=== PATIENT | female | born 1990 | race Caucasian/White ===

== ENCOUNTER 2019-07-12 11:07 | Inpatient (IN) | payer OTHER ==
[2019-07-12 11:58] VITALS: BMI 38.4
[2019-07-12] MEDS ORDERED: hydrALAZINE 20 MG/ML VIAL SLOW IVP PRN (12:22)
[2019-07-12 12:41] LABS: Amnisure Internal Control QC ACCEPTABLE (ACCEPTABLE); Amnisure Test No Membranes Rupture (No Rupture)
--- NOTE | 2019-07-12 13:10 | PDOC.FPROB ---
FMR OB H&P: HPI - History of Present Illness Chief Complaint: leakage of fluid Indentification: 29yo @ 38.5wk by LMP c/w 10.3wk sono History of Present Illness: 29yo @ 38.5wk by LMP c/w 10.3wk sono presents for leakage of fluid and contractions. Pt states she had intercourse this morning, afterwards had a continual leakage of fluids and contractions intermittently that persisted. Presented to clinic and was found to have BP of 134/91 and repeat of 132/85. Dipstick with trace protein. Was sent to L&D for further eval and management. Endorses good movement, no vaginal bleeding, no change in vaginal discharge. No BRADY, vision changes, n/v, fever/chills, sob. She does endorse lower back pain as well. Primary Care Physician: GUILLERMO Velasquez/Khai FMR OB H&P: Current - Care : 2 Para: 1001 Gestational age: 38.5 Due date: 07/21/19 Dating Criteria: LMP c/w 10.3wk sono - OB Labs Blood type: O RH: negative Antibody Screen: negative HIV: negative RPR: negative HepBsAg: negative Rubella: immune Gonorrhea: negative Chlamydia: negative Pap Smear: NILM, HPV neg 1 hour gtt: 148 3 hour GTT: 128 -Passed GBS: negative H&H: 11.8 FMR OB H&P: History - Past Medical History PMH: ITP - OB History OB History: , previous delivery in 05/23/2009 was LTCS for failure to progress. 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 FMR OB H&P: Medications - Current Home Medications: Medication Instructions Recorded Confirmed Type Calcium Carbonate [Tums] 500 mg PO QID PRN 07/12/19 07/12/19 History Mv-Mn/Iron/FA/Herbal/Digestive 1 tablet PO DAILY 07/12/19 07/12/19 History [ One Tablet] Allergies/Adverse Reactions: Allergies Allergy/AdvReac Type Severity Reaction Status Date / Time rituximab [From Rituxan] Allergy Severe Anaphylaxis Verified 07/12/19 11:56 FMR OB H&P: ROS - Review of Systems General: denies: fever/chills, weight/appetite/sleep changes, night sweats, fatigue, recent trauma Eyes: denies: vision changes, double vision, scotomas ENT: denies: nasal congestion, rhinorrhea Cardiovascular: denies: chest pain Respiratory: denies: cough, congestion, shortness of breath Gastrointestinal: denies: abdominal pain, vomiting, diarrhea, constipation Genitourinary (Female): reports: vaginal discharge (clear leakage of fluid), contractions (intermittent). denies: dysuria, vaginal pain, vaginal bleeding, vaginal pressure Neurologic: denies: numbness, syncope, seizures Integumentary: denies: rash FMR OB H&P: Vital Signs - Maternal Vital signs: BP 127/80, repeat 140/83. Pulse 78. - Heart Tones Baseline: 140 (reactive) Variability: moderate Acceleration: present Deceleration: absent Category: category 1 [place] contractions every: Not observed on strip FMR OB H&P: Physical Exam - Physical Exam General: NAD, awake, alert and oriented (breathing through contractions) HEENT: MMM, conjunctiva clear, no scleral icterus Neck: supple, trachea midline Heart: RRR, normal S1/S2, no murmurs/rubs/gallops, pulses present, no edema General: CTAB, no respiratory distress, good air movement, no rales/rhonchi, no wheezing Abdomen: soft, gravid, non-tender, bowel sound present Neurological: no tremor, no focal deficit Skin: no rash Lymphatic: no unusual bruising or bleeding Psychiatric: intact recent and remote memory, good judgement and insight, normal mood and affect - Pelvic Exam Vulva: normal hair distribution, no discharge, no blood Cervix: no masses, no lesions, no blood SVE: 1/0/-3, firm Membranes: intact FMR OB H&P: Results - Labs Lab results: Laboratory Results - last 24 hr 07/12/19 12:23 Amnio Swab Test No Membranes Rupture FMR OB H&P: A/P - Problem List (1) Third trimester Current Visit: Yes Status: Acute Code(s): Z34.93 - ENCNTR FOR SUPRVSN OF NORMAL PREG, UNSP, THIRD TRIMESTER Disposition: 29yo @ 38.5wk by LMP c/w 10.3wk sono presents for leakage of fluid and contractions. #Concern for labor - leakage of fluid since this morning after intercourse - Contractions intermittent - Good movement, no vaginal bleeding, no change in vaginal discharge - SVE 1/0/-3 - Amnisure negative - Spec exam with no pooling of fluid - Findings support no rupture of membranes likely discharge 2/2 intercouse and possibly urinary incontinence - Reactive strip, baseline 140, accels, no deccels, no contractions on monitor #Elevated BP - Had BP 134/91 in clinic and SBP of 140 in triage - 2 elevated BP almost 4 hours apart, will order PreE workup - Cont to monitor FHT and BP #3rd Trimester - @ 38.5 wk by LMP c/w 10.3k sono - Scheduled for rLTCS on 07/19 PCP: GUILLERMO Velasquez/Khai Dispo: Not in active labor, intact. Pending PreE workup. Dispo pending clinical course and results. Discussion: Date/Time: 07/12/19 1300 This H&P was discussed with Dr. Mendenhall and Dr. Norris who agree with the above documentation and plan. Addendum - Attending - Attending Attestation Date/Time: 07/12/19 1609 I personally evaluated the patient and discussed the management with Dr. Li. I agree with the History, Examination, Assessment and Plan documented above with any addition or exceptions noted below.
[2019-07-12 15:00] LABS: #Eosinphils 0.1 thou/uL (0.0-0.7); #Lymphocytes 1.6 thou/uL (1.20-3.40); #Monocytes 0.7 thou/uL (0.11-0.59); #Neutrophils 8.3 thou/uL (1.40-6.50); %Basophils 0.5 % (0.0-1.0); %Eosinophils 0.8 % (0.0-10.0); %Lymphocytes 15.1 % (21.0-51.0); %Monocytes 6.3 % (0.0-10.0); %Neutrophils 77.5 % (42.0-75.0); Hemoglobin 13.3 g/dL (12.0-16.0); Mean Corpuscular HGB CONC 34.9 g/dL (32.0-36.0); Mean Corpuscular Hemoglobin 33.1 pg (27.0-31.0); Mean Corpuscular Volume 94.9 fL (78.0-98.0); Mean Platelet Volume 10.1 fL (7.4-10.4); Platelet Count 172 thou/uL (130-400); RBC Distribution Width 12.6 % (11.5-14.5); Red Blood Cell (RBC) Count 4.02 mill/uL (4.20-5.40); White Blood Cell (WBC) Count 10.7 thou/uL (4.8-10.8)
[2019-07-12] MEDS: Lactated Ringer's 1,000 ML IV SCH (15:19)
[2019-07-12 15:20] LABS: ALT (SGPT) 11 U/L (8-55); AST (SGOT) 20 U/L (5-34); Albumin 3.4 g/dL (3.5-5.0); Alkaline Phosphatase 176 U/L (40-110); Anion Gap 13 mmol/L (10-20); BUN (Urea Nitrogen) 9 mg/dL (7.0-18.7); Bilirubin, Total 0.4 mg/dL (0.2-1.2); Calc. Creatinine Clearance 167 mL/min (70-130); Calcium 9.9 mg/dL (7.8-10.44); Carbon Dioxide 23 mmol/L (22-29); Chloride 103 mmol/L (98-107); Estimated GFR-MDRD 89; Globulin 3.3 g/dL (2.4-3.5); Glucose 86 mg/dL (70-105); Potassium 4.3 mmol/L (3.5-5.1); Protein, Total 6.7 g/dL (6.0-8.3); Sodium 135 mmol/L (136-145)
[2019-07-12 15:49] LABS: Creatinine, Urine 150.87 mg/dL (47-110)
[2019-07-12] MEDS ORDERED: Promethazine HCl 25 MG/ML VIAL IM PRN ×2 (17:26→22:55)
[2019-07-12] MEDS ORDERED: Ondansetron PF 4 MG/2 ML Vial IVP PRN ×2 (17:26→22:55)
[2019-07-12] MEDS ORDERED: CEFAZOLIN 2 GM in Premix Bag 1 BAG IVPB SCH (18:00)
[2019-07-12] MEDS ORDERED: Bicitra 30 ML UDCUP PO SCH (18:00)
[2019-07-12 18:49] LABS: Hemoglobin 13.7 g/dL (12.0-16.0); Mean Corpuscular HGB CONC 36.1 g/dL (32.0-36.0); Mean Corpuscular Hemoglobin 33.8 pg (27.0-31.0); Mean Corpuscular Volume 93.7 fL (78.0-98.0); Mean Platelet Volume 10.4 fL (7.4-10.4); Platelet Count 170 thou/uL (130-400); RBC Distribution Width 12.7 % (11.5-14.5); Red Blood Cell (RBC) Count 4.05 mill/uL (4.20-5.40); White Blood Cell (WBC) Count 11.1 thou/uL (4.8-10.8)
[2019-07-12 19:24] LABS: Syphilis Antibody Nonreactive (Nonreactive); Syphilis Antibody Index 0.05 S/CO (<1.00 Non-Reactive)
[2019-07-12 19:25] LABS: HBSAg Index 0.25 S/CO (0-0.99); Hep B Surf Ag Non-Reactive S/CO (NonReactive)
--- NOTE | 2019-07-12 20:45 | PDOC.LDPN ---
Labor & Delivery Progress Note - Subjective Subjective: painful contractions - Objective Vital signs reviewed and normal: yes General: NAD, resting, breathing through contractions Uterine fundus: non tender Dilation: 3 cm Effacement: 75% Station: -3 FHT: category 1 [place] contractions every: Q4-5M Plan: continue plan of care -: Patient is a 29 y/o @ 38.5W by LMP c/w 10.3W US currently on L&D for evaluation following multiple elevated BP readings. 1. Term IUP -Patient was resting with her at bedside -Unremarkable physical exam -Maternal VSS w/o severe-range pressures -Cat 1 strip w/o deccels -SVE: /-3 @ 2029 Dispo: Will evaluate for TOLAC vs. rCSx. Addendum - Attending - Attending Attestation Date/Time: 07/12/192125 I personally evaluated the patient and discussed the management with Dr. Lee I agree with the History, Examination, Assessment and Plan documented above with any addition or exceptions noted below. 29 yo female at 38.5 wks admitted for gHTN with hx of LTCS x 1. 375/-3 with regular painful contractions. Would like to proceed with TOLAC. Repeat exam in 2 to 4 hours or prn. Cat 1 tracing. Cephalic. GBS negative. Rh negative s/p Rhogam. ABrayMD
[2019-07-12] MEDS ORDERED: Fentanyl 4 mcg/Bup 0.1% Cadd 100 ML ONE (21:57)
[2019-07-12] MEDS ORDERED: NS / Oxytocin 40 units/1000ml 1,000 ML IV PRN (22:21)
[2019-07-12] MEDS ORDERED: Lidocaine 1% (PF) 30 ML VIAL SC PRN (22:21)
[2019-07-12] MEDS ORDERED: Ibuprofen 800 MG TAB PO PRN (22:21)
--- NOTE | 2019-07-12 22:24 | PDOC.BPN ---
<JcEsha - Last Filed: 07/12/19 22:24> - Brief Progress Note Discussed risks and benefits of TOLAC vs rLTCS with patient and she discussed with her and they decided to proceed with a TOLAC. She was consented on the risks of this. -Continuous monitoring -Cervical checks q4h while in latent labor and q2h while in active labor -Will start pitocin if no cervical change at next check -Anesthesia has been consulted for epidural <Edyta Shea - Last Filed: 07/13/19 01:25> - Brief Progress Note Attending note: R/B/A discussed in regards to TOLAC. Patient with hx of LTCS 10 years ago. Presented earlier today and diagnosis with gHTN. Remains asymptomatic. Labs WNL. BP normotensive with occasional mild range. Initially decided to have repeat delivery. Is actually scheduled for next week. However, due to delayed scheduled section patient continues to be pushed back. Continued to have contractions that increased in frequency and quality. Initially was 1 cm now progressed to 3 cm. After questions answered and time to discuss options with , they have decided to proceed with TOLAC at this time. Reassurance provided for pain controlled. Advised patient that we will continue conservatively and let her progress on her own. She would like epidural for pain control. Discussed reasons for proceeding with section. Monitor closely. Consents signed. Repeat exam in 2 to 4 hours or prn. Rose
[2019-07-12] MEDS ORDERED: Naloxone HCl 0.4 mg/ml Vial IVP PRN ×2 (22:55)
[2019-07-12] MEDS ORDERED: Acetaminophen 325 MG TAB PO PRN (22:55)
[2019-07-12] MEDS ORDERED: ePHEDrine/0.9% NaCl/PF SYRINGE 50 mg/10 ml SLOW IVP PRN (22:55)
[2019-07-12] MEDS ORDERED: Lactated Ringer's 500 ML IV PRN (22:55)
[2019-07-12] MEDS ORDERED: diphenhydrAMINE 50 MG/ML VIAL IVP PRN (22:55)
[2019-07-12] MEDS ORDERED: Fentanyl 4 mcg/Bupivacaine 0.1% Cassette 100 ML EPIDURAL SCH (23:00)
[2019-07-12] MEDS ORDERED: Communication Order-Pharmacy FS SCH (23:00)
--- NOTE | 2019-07-12 23:49 | PDOC.LDPN ---
Labor & Delivery Progress Note - Subjective Subjective: comfortable - Objective Vital signs reviewed and normal: yes General: NAD SVE: /-2 @ 2330 FHT: category 2 (late decelerations after BP dropped from epidural, currently 160/mod azael/no accels) [place] contractions every: 5 min Resuscitative measures: maternal IV fluids, maternal position change - Assessment (1) Term Code(s): Z34.90 - ENCNTR FOR SUPRVSN OF NORMAL , UNSP, UNSP TRIMESTER Current Visit: Yes Status: Acute Comment: TOLAC in active labor with dx today of gHTN -SVE -2, pt making cervical change on her own, will expectantly manage -Epidural in place -Position changes and IVF bolus for cat 2 FHT after epidural, monitor closely (2) Gestational HTN Code(s): O13.9 - GESTATIONAL HTN W/O SIGNIFICANT PROTEINURIA, UNSP TRIMESTER Current Visit: Yes Status: Acute Comment: Pt in active labor, will monitor BP's and if severe then will start magnesium (3) H/O section Code(s): Z98.891 - HISTORY OF UTERINE SCAR FROM PREVIOUS SURGERY Current Visit : Yes Status: Acute Comment: Pt attempting TOLAC Plan: continue plan of care Addendum - Attending - Attending Attestation Date/Time: 07/13/19 3178 I personally evaluated the patient and discussed the management with Dr. Greene I agree with the History, Examination, Assessment and Plan documented above with any addition or exceptions noted below. Continues to show progress. Now /-3. Intact. Cephalic. GBS negative. Continue to monitor BP. Remains asymptomatic. Would like to proceed with TOLAC. Rose
[2019-07-13] MEDS: Lactated Ringer's 1,000 ML IV SCH ×3 (02:30→14:19)
[2019-07-13] MEDS ORDERED: NS w/ Oxytocin 10 units 500 ML IV SCH (03:45)
[2019-07-13] MEDS ORDERED: NS w/ Oxytocin 10 units 500 ML ONE (03:48)
--- NOTE | 2019-07-13 03:48 | PDOC.LDPN ---
Labor & Delivery Progress Note - Subjective Subjective: comfortable - Objective Vital signs reviewed and normal: yes General: NAD Uterine fundus: palpable contractions SVE: 80/-2 @ 0340, unchanged from prior FHT: category 1, variability present [place] contractions every: 5 min - Assessment (1) Term Code(s): Z34.90 - ENCNTR FOR SUPRVSN OF NORMAL , UNSP, UNSP TRIMESTER Current Visit: Yes Status: Acute Comment: TOLAC in labor with dx today of gHTN -SVE /-2, unchanged from prior, will start pitocin -Epidural in place (2) Gestational HTN Code(s): O13.9 - GESTATIONAL HTN W/O SIGNIFICANT PROTEINURIA, UNSP TRIMESTER Current Visit: Yes Status: Acute Comment: Pt in labor, will monitor BP's and if severe then will start magnesium (3) H/O section Code(s): Z98.891 - HISTORY OF UTERINE SCAR FROM PREVIOUS SURGERY Current Visit : Yes Status: Acute Comment: Pt attempting TOLAC Plan: continue plan of care, pitocin for augmentation Addendum - Attending - Attending Attestation Date/Time: 07/13/19628 I personally evaluated the patient and discussed the management with Dr. Greene I agree with the History, Examination, Assessment and Plan documented above with any addition or exceptions noted below. 29 yo female at 38.6 by LMP/10.3 wk sono admitted for gHTN decided to proceed with TOLAC Patient doing well. Pain now controlled with epidural. Remains unchanged from last exam. Discussed options, risk, benefits, and alternatives related to pitocin for augmentation. Agrees. Will start pit per protocol. Once fetus well engaged will discuss AROM if not already SROM for IUPC placement to help with pitocin titration. Cat 1 tracing. Patient with hx of ITP. Would continue to trend platelets. Risk for thrombocytopenia. Repeat exam in 2 to 4 hours or prn. Rose
[2019-07-13] MEDS ORDERED: Fentanyl 4 mcg/Bup 0.1% Cadd 100 ML ONE ×2 (06:07→12:29)
--- NOTE | 2019-07-13 07:31 | PDOC.LDPN ---
Labor & Delivery Progress Note - Subjective Subjective: comfortable - Objective Vital signs reviewed and normal: yes General: NAD, resting Uterine fundus: non tender -: 29yo @ 38.6wk by LMP c/w 10.3wk, # Tolac, Expectant management - pit started at 0345 - SVE 10/-3 @ 0100 /-3 @2032 /-2 @ 2330 /2 @ 0345 - pit started 2 @ 0730 - regular contraction pattern started ~0530 - Reactive strip, baseline 140, accels, no deccels, no contractions on monitor #gestational HTN -pr/cr ratio 0.13 - multiple mild range pressures - monitor # Hx of ITP - plts 170, monitor PCP: GUILLERMO Navarro Addendum - Attending - Attending Attestation Date/Time: 07/13/19 6777 I personally evaluated the patient and discussed the management with Dr. Winters. I agree with the History, Examination, Assessment and Plan documented above with any addition or exceptions noted below.
--- NOTE | 2019-07-13 11:06 | PDOC.LDPN ---
Labor & Delivery Progress Note - Subjective Subjective: comfortable - Objective Vital signs reviewed and normal: yes General: NAD AROM: clear fluid - Assessment (1) Gestational HTN Code(s): O13.9 - GESTATIONAL HTN W/O SIGNIFICANT PROTEINURIA, UNSP TRIMESTER Current Visit: Yes Status: Acute (2) H/O section Code(s): Z98.891 - HISTORY OF UTERINE SCAR FROM PREVIOUS SURGERY Current Visit : Yes Status: Acute (3) Term Code(s): Z34.90 - ENCNTR FOR SUPRVSN OF NORMAL , UNSP, UNSP TRIMESTER Current Visit: Yes Status: Acute -: 29yo @ 38.6wk by LMP c/w 10.3wk, # Tolac, Expectant management - pit started at 0345 - SVE 1/0/-3 @ 0100 380/-3 @2032 480/-2 @ 2330 480/-2 @ 0345 - pit started /-2 @ 0730 6/-1 @ 1030, AROM - Reactive strip, baseline 140, accels, no deccels, no contractions on monitor #gestational HTN -pr/cr ratio 0.13 - multiple mild range pressures - had one severe range pressure overnight when she was adjusting for placement of epidural, will discard as invalid finding - magnesium was discussed and considered, patient does not have mult severe range pressures nor lab changes so will hold off for now # Hx of ITP - plts 170, monitor PCP: GUILLERMO Velasquez/Khai
--- NOTE | 2019-07-13 13:27 | PDOC.LDPN ---
Labor & Delivery Progress Note - Subjective Subjective: comfortable - Objective Vital signs reviewed and normal: yes General: NAD, resting - Assessment (1) Gestational HTN Code(s): O13.9 - GESTATIONAL HTN W/O SIGNIFICANT PROTEINURIA, UNSP TRIMESTER Current Visit: Yes Status: Acute (2) H/O section Code(s): Z98.891 - HISTORY OF UTERINE SCAR FROM PREVIOUS SURGERY Current Visit : Yes Status: Acute (3) Term Code(s): Z34.90 - ENCNTR FOR SUPRVSN OF NORMAL , UNSP, UNSP TRIMESTER Current Visit: Yes Status: Acute -: 29yo @ 38.6wk by LMP c/w 10.3wk, # Tolac, Expectant management - pit started at 0345 - SVE 1/0/-3 @ 0100 80/-3 @2032 480/-2 @ 2330 4/-2 @ 0345 - pit started /-2 @ 0730 /-1 @ 1030, AROM, IUPC @11 6/-1 @ 1300 - Reactive strip, baseline 140, accels, no deccels, no contractions on monitor #gestational HTN -pr/cr ratio 0.13 - few mild range pressures - had one severe range pressure overnight when she was adjusting for placement of epidural, will discard as invalid finding - magnesium was discussed and considered, patient does not have mult severe range pressures nor lab changes so will hold off for now # Hx of ITP - plts 170, monitor PCP: GUILLERMO Velasquez/Khai Addendum - Attending - Attending Attestation Date/Time: 07/13/19 2340 I personally evaluated the patient and discussed the management with Dr. Winters I agree with the History, Examination, Assessment and Plan documented above with any addition or exceptions noted below. Dr. Norris present as ruth.
--- NOTE | 2019-07-13 15:13 | PDOC.LDPN ---
Labor & Delivery Progress Note - Subjective Subjective: comfortable - Objective Vital signs reviewed and normal: yes General: NAD - Assessment (1) Gestational HTN Code(s): O13.9 - GESTATIONAL HTN W/O SIGNIFICANT PROTEINURIA, UNSP TRIMESTER Current Visit: Yes Status: Acute (2) H/O section Code(s): Z98.891 - HISTORY OF UTERINE SCAR FROM PREVIOUS SURGERY Current Visit : Yes Status: Acute (3) Term Code(s): Z34.90 - ENCNTR FOR SUPRVSN OF NORMAL , UNSP, UNSP TRIMESTER Current Visit: Yes Status: Acute -: 29yo @ 38.6wk by LMP c/w 10.3wk, # Tolac, Expectant management - pit started at 0345 - SVE /-3 @ 0100 /-3 @2032 /-2 @ 2330 /-2 @ 0345 - pit started /2 @ 0730 /-1 @ 1030, AROM, IUPC @11 -1 @ 1300 /-1 @ 1500 Discussed R/B/A to c/s with patient and she is in agreement to proceed with c/s 2/2 arrest of dilation. She has had adequate contractions over the last four hours and has not been making change. - Reactive strip, baseline 140, accels, no deccels, no contractions on monitor #gestational HTN -pr/cr ratio 0.13 - few mild range pressures - had one severe range pressure overnight when she was adjusting for placement of epidural, will discard as invalid finding - magnesium was discussed and considered, patient does not have mult severe range pressures nor lab changes so will hold off for now # Hx of ITP - plts 170, monitor PCP: GUILLERMO Velasquez/Khai
[2019-07-13] MEDS ORDERED: Azithromycin 500 MG VIAL ONE (15:29)
[2019-07-13] MEDS ORDERED: CEFAZOLIN 2 GM in Premix Bag 1 BAG IVPB SCH (15:30)
[2019-07-13] MEDS ORDERED: Bicitra 30 ML UDCUP PO SCH (15:30)
[2019-07-13] MEDS ORDERED: Azithromycin 500 MG in Syringe 0 ML IVPB SCH (15:30)
[2019-07-13] MEDS ORDERED: metroNIDAZOLE 500 MG in Premix Bag 1 BAG IVPB SCH (16:32)
[2019-07-13] MEDS: Bicitra 30 ML UDCUP ONE ×2 (16:51→19:22)
--- NOTE | 2019-07-13 16:51 | PDOC.BPN ---
- Brief Progress Note Fever to 100.7 No purulent discharge has been noted on checks Will start Ancef, Azithro, Flaggyl for surgical PPX Plan for Unasyn and Flaggyl for 48 hours PP
[2019-07-13] MEDS ORDERED: ePHEDrine/0.9% NaCl/PF SYRINGE 50 mg/10 ml ONE (17:27)
[2019-07-13] MEDS ORDERED: Ketorolac Tromethamine 30 MG/ML VIAL ONE (17:27)
[2019-07-13] MEDS ORDERED: Dexamethasone 4 mg/ml Vial ONE (17:27)
[2019-07-13] MEDS ORDERED: PHENYLEPHRINE-NS 100 MCG/ML 10 ML SYRINGE ONE (17:27)
[2019-07-13] MEDS ORDERED: Oxytocin 10 UNITS/ML VIAL ONE (17:27)
[2019-07-13] MEDS ORDERED: MORPHINE 5 MG/10 ML PF VIAL ONE (17:27)
[2019-07-13] MEDS ORDERED: Ondansetron PF 4 MG/2 ML Vial ONE (17:41)
[2019-07-13] MEDS ORDERED: Carboprost 250 MCG/ML AMP ONE (17:59)
[2019-07-13] MEDS ORDERED: Promethazine HCl 25 MG/ML VIAL ONE (18:10)
[2019-07-13] MEDS ORDERED: Midazolam HCl 2 mg/2 ml Vial ONE (18:23)
[2019-07-13] MEDS ORDERED: Ketamine 50 MG/ML (10ML VIAL) ONE (18:27)
[2019-07-13] MEDS ORDERED: Furosemide 100 MG/10 ML VIAL ONE (19:00)
[2019-07-13] MEDS ORDERED: L&D-Morphine 4 MG/ML VIAL SLOW IVP PRN (19:18)
[2019-07-13] MEDS ORDERED: Ondansetron PF 4 MG/2 ML Vial IVP PRN ×2 (19:18→21:08)
[2019-07-13] MEDS ORDERED: Naloxone HCl 0.4 mg/ml Vial IVP PRN ×2 (19:18)
[2019-07-13] MEDS ORDERED: HYDROmorphone 2 MG/ML VIAL SLOW IVP PRN (19:18)
[2019-07-13] MEDS ORDERED: Promethazine HCl 25 MG SUPP PR PRN (19:18)
[2019-07-13] MEDS ORDERED: Promethazine HCl 25 MG/ML VIAL IM PRN (19:18)
[2019-07-13] MEDS ORDERED: Ketorolac Tromethamine 30 MG/ML VIAL IVP PRN (19:18)
[2019-07-13] MEDS ORDERED: Meperidine HCl/PF 25 MG/ML VIAL SLOW IVP PRN (19:18)
[2019-07-13] MEDS ORDERED: Ondansetron HCl/PF 4 MG/2 ML Vial IVP PRN (19:18)
[2019-07-13] MEDS ORDERED: diphenhydrAMINE 50 MG/ML VIAL IVP PRN (19:18)
[2019-07-13] MEDS ORDERED: Naloxone HCl 0.4 mg/ml Vial IV PRN (19:18)
[2019-07-13] MEDS ORDERED: Furosemide 20 MG/2 ML VIAL SLOW IVP SCH (19:30)
[2019-07-13] MEDS ORDERED: Lactated Ringer's 1,000 ML IV SCH (19:30)
[2019-07-13] MEDS ORDERED: Diphenoxylate HCl/Atropine Tablet PO SCH (19:30)
[2019-07-13] MEDS ORDERED: Ketorolac Tromethamine 30 MG/ML VIAL IVP SCH (19:30)
[2019-07-13] MEDS ORDERED: Communication Order-Pharmacy FS SCH (19:30)
--- NOTE | 2019-07-13 19:32 | PDOC.EVN ---
Event Note - Event Note Event Note: I was present and proctored Dr. Hess for this patient who was attempted a TOLAC and subsequently needed a repeat LCT C/S for arrest of dilatation. Agree with management and decision to perform . Viable female delivered LOP position Apgars 8/9. QBL 1355 mL
--- NOTE | 2019-07-13 19:35 | PDOC.EVN ---
Event Note - Event Note Event Note: operative note dictated. # [id number]
[2019-07-13] MEDS ORDERED: hydrALAZINE 20 MG/ML VIAL SLOW IVP PRN (21:08)
[2019-07-13] MEDS ORDERED: Adacel (T-DAP) 0.5 ML SYRINGE IM ONE (21:08)
[2019-07-13] MEDS ORDERED: Lanolin Ointment 7 GM TUBE TOP PRN (21:08)
[2019-07-14] MEDS: Docusate Calcium (SURFAK) 240 MG CAP PO SCH ×3 (00:16→21:23)
[2019-07-14] MEDS: Ferrous Sulfate 325 MG TAB PO SCH ×3 (00:16→21:23)
[2019-07-14] MEDS: Ibuprofen 800 MG TAB PO SCH ×4 (00:17→21:23)
[2019-07-14] MEDS: Ampicillin/Sulbactam 3 GM in Sodium Chloride 0.9% 100 ML IVPB SCH ×4 (00:32→15:58)
[2019-07-14] MEDS: metroNIDAZOLE 500 MG in Premix Bag 1 BAG IVPB SCH ×3 (00:35→14:36)
[2019-07-14] MEDS: Lactated Ringer's 1,000 ML IV SCH (00:48)
--- NOTE | 2019-07-14 01:32 | OP ---
DATE OF PROCEDURE: 07/13/2019 SURGEON: Esa Hess MD RESIDENT SURGEONS: 1. Michoacano Winters MD. 2. Boom Velasquez DO. PROCTORING SURGEON: Annemarie Copeland MD PROCEDURE PERFORMED: Repeat low-transverse . PREOPERATIVE DIAGNOSES: 1. Term intrauterine at 38.6 weeks. 2. Prior section x1. 3. Desire for trial of labor after . 4. Spontaneous onset of labor. 5. Gestational hypertension without severe features. 6. Obesity. 7. Suspected intraamniotic infection. 8. Arrest of dilation. POSTOPERATIVE DIAGNOSES: 1. Term intrauterine , delivered. 2. Failed trial of labor after section. 3. Intraamniotic infection. 4. Prior section x1. 5. Desire for trial of labor after . 6. Spontaneous onset of labor. 7. Gestational hypertension without severe features. 8. Obesity. 9. hemorrhage. 10. Arrest of dilation. ANESTHESIA: Epidural with bolus, ketamine, Versed. QUANTITATIVE BLOOD LOSS: 1355 mL. INDICATIONS: Ms. Porras is a 29-year-old, 2, para 1-0-0-1 at 38.6 weeks, who presented at 38.5 weeks for concern for labor and was found to have two elevated blood pressures outside the severe range. While awaiting repeat , she was found to have made spontaneous cervical change from 1 to 3 cm. She elected to proceed with a trial of labor after at that time. She was counseled on the risks and benefits, and elected to proceed. She failed to make cervical change after 6 hours on Pitocin. Also during the intrapartum course, she developed a fever and was started on IV cefazolin and azithromycin. Given that she had multiple complications and was remote from delivery, the patient was counseled on risks and benefits of continuing with trial of labor. At this time, she elected to proceed with repeat section. PROCEDURE IN DETAIL: After risks, benefits, and alternatives were discussed with the patient, she provided informed consent. She was taken to the operating room and her epidural was bolused. She was given preoperative antibiotics of cefazolin 2 g IV and azithromycin 500 mg. She was prepped and draped in usual sterile fashion. A Pfannenstiel incision was made along her previous skin incision, which was carried down sharply to the level of fascia, which was then nicked. The subcutaneous fat was cleared away from the overlying fascia and the fascia was extended in a curvilinear fashion using curved Serrano scissors. The superior and inferior edges of the fascia were elevated and bluntly dissected away from the underlying rectus muscles. Rectus muscles were divided digitally and retracted manually. Peritoneum was entered digitally and retracted manually. Justin O retractor was initially placed, providing visualization of lower uterine segment. No bladder flap was made at this time. A clean scalpel was used to make hysterotomy, which was then carried down sharply in the midline. The uterine cavity was entered bluntly and retracted in the caudocranial fashion. It was noted to be in the occiput posterior position and was elevated from the pelvis manually and delivered through the hysterotomy with fundal pressure. Anterior shoulder and remainder of the body were then delivered without difficulty. The cord was immediately cut and clamped and the infant was taken to the waiting resuscitative team. During the delivery, the Justin O retractor came out of the abdomen, so a bladder blade was placed to visualize the hysterotomy. The placenta was manually extracted and sent to Pathology after cord blood was collected. The uterus was exteriorized and the apices and lower uterine segment were identified. The lower portion of the hysterotomy had retracted close to the bladder than it had been on initial examination. The lower edge was clearly identified and clamped with ring forceps. A briskly bleeding arterial vessel was noted along the left edge of the hysterotomy and was controlled with a ring forceps. The hysterotomy was closed using #1 Monocryl in a running locking fashion. Additional [id number] and locking stitches were placed along the left apex to control the previously mentioned arterial vessel with good result. There were still several oozing spots along the hysterotomy, so a second imbricating layer was made using a #1 Monocryl. At this time, there was a small bleeding spot noted on the right apex, which was controlled with a single [id number] stitch using #1 Monocryl. The posterior gutter was visualized and suctioned free of clots. Uterus was placed back in the abdomen and the hysterotomy was inspected one final time. Given the close proximity of the lower edge of the hysterotomy to the bladder, the bladder was backfilled with 120 mL of sterile milk and no extravasation or incorporation of the bladder was noted in the hysterotomy repair. The rectus muscles were visualized and all bleeding was addressed with Bovie cautery. The fascia was reapproximated with a running nonlocking 0 PDS. Subcutaneous tissues were irrigated and reapproximated using #2 plain gut after bleeding vessels were addressed with the Bovie. The skin was reapproximated with 4-0 Monocryl and Dermabond was placed over the incision. Counts were correct x3. The patient tolerated the procedure well and will go to the unit after routine care and recovery. The patient will be kept on IV antibiotics of Unasyn and Flagyl for the next 24 hours due to intraamniotic infection and failed trial of labor. FINDINGS: 1. Grossly normal viable female infant, born at 1754 hours with Apgars of 8 and 9 at 1 and 5 minutes respectively. 2. Intact placenta with 3-vessel cord sent to Pathology. 3. Minimal abdominal adhesions and uterine adhesions. 4. Santoro catheter draining clear urine preoperatively and milk tinged urine postoperatively. Dr. Copeland was present for the entire case proctoring the procedure. Job ID: [id number] [facility]
--- NOTE | 2019-07-14 02:57 | PDOC.BPN ---
- Brief Progress Note Evaluated patient post-op. She is sleeping in bed. Reports feeling hot. Pain is still well controlled. Vital signs stable Fundus firm, pt well appearing Incisional dressing still in place with no drainage -Continue current plan of care -on abx 2/2 IAI
[2019-07-14 06:11] LABS: #Lymphocytes 1.5 thou/uL (1.20-3.40); #Neutrophils 16.3 thou/uL (1.40-6.50); %Basophils 0.1 % (0.0-1.0); %Eosinophils 0.2 % (0.0-10.0); %Lymphocytes 7.7 % (21.0-51.0); %Monocytes 5.1 % (0.0-10.0); %Neutrophils 86.9 % (42.0-75.0); Hemoglobin 9.1 g/dL (12.0-16.0); Mean Corpuscular HGB CONC 35.7 g/dL (32.0-36.0); Mean Corpuscular Hemoglobin 34.2 pg (27.0-31.0); Mean Corpuscular Volume 95.8 fL (78.0-98.0); Mean Platelet Volume 10.1 fL (7.4-10.4); Platelet Count 154 thou/uL (130-400); RBC Distribution Width 12.7 % (11.5-14.5); Red Blood Cell (RBC) Count 2.65 mill/uL (4.20-5.40); White Blood Cell (WBC) Count 18.8 thou/uL (4.8-10.8)
[2019-07-14] MEDS: HYDROcodone/Acetaminophen 5/325 mg Tablet PO PRN ×3 (07:24→20:23)
[2019-07-14] MEDS: Simethicone Chewable 80 MG TAB PO PRN ×2 (07:25→20:23)
--- NOTE | 2019-07-14 08:23 | PDOC.PP ---
Post Progress Note Post Day #: 1 Subjective: 29yo ->2 @ 38.6wk by LMP c/w 10.3wk delivered KEAGANA female at 17:54 on via repeat LTCS due to arrest of dilation is seen at bedside this AM. Patient reports she slept very well overnight. She reports her pain is well controlled with Hydrocodone. She notes that she has tolerated PO well and nurses are progressing her diet this AM. She notes she has had plenty of flatus , but has not been up to ambulate yet. She still has her swan in place at this time as well. She notes that she has had no headache, vision changes, fevers, chills, or lower extremity swelling. She does report minimal lochia. No other complaints this AM. PO intake tolerated: yes Flatus: yes Ambulation: no Vital Signs (12 hours) Temp Pulse Resp BP Pulse Ox 07/14/19 05:47 98.8 F 78 103/55 L 07/13/19 23:00 99.4 F 87 16 115/55 L 93 L 07/13/19 21:50 99.0 F 86 14 120/58 L 96 Weight Weight 98.43 kg - Physical Examination General: NAD Cardiovascular: no m/r/g, RRR Respiratory: clear to auscultation bilaterally, non-labored breathing Abdominal: + bowel sounds, lochia, no distention, appropriately TTP Extremities: negative homans (B) Skin: CS incision dry & intact, no rash Neurological: no gross focal deficits Psychiatric: A&Ox3, normal affect Result Diagrams: 07/14/19 05:51 07/12/19 14:33 Additional Labs: Post Labs Blood Type O NEGATIVE 07/12/19 18:40 Hep Bs Antigen Non-Reactive S/CO (NonReactive) 07/12/19 18:34 (1) Term delivered Code(s): O80 - ENCOUNTER FOR FULL-TERM UNCOMPLICATED DELIVERY Status: Acute (2) S/P Code(s): Z98.891 - HISTORY OF UTERINE SCAR FROM PREVIOUS SURGERY Status: Acute (3) Chorioamnionitis Code(s): O41.1290 - CHORIOAMNIONITIS, UNSP TRIMESTER, NOT APPLICABLE OR UNSP Status: Acute (4) Gestational HTN Code(s): O13.9 - GESTATIONAL HTN W/O SIGNIFICANT PROTEINURIA, UNSP TRIMESTER Status: Acute - Assessment/Plan 1. TIUP, delivered via repeat LTCS - 24 hour QBL 1516 - H&H this AM 9.1 - Continue routine post-op care 2. Gestational HTN - BP well controlled without medications - Continue routine monitoring 3. IAI - Afebrile overnight - Continue antibiotics for 24 hours if no complications arise Disposition: Stable, will continue current plan of care. Plan for discharge in afternoon. Addendum - Attending - Attending Attestation Date/Time: 07/14/19 4800 I personally evaluated the patient and discussed the management with Dr. Winters I agree with the History, Examination, Assessment and Plan documented above with any addition or exceptions noted below.
[2019-07-14] MEDS: Prenatal Vitamin 1 TAB PO SCH (10:09)
[2019-07-14] MEDS ORDERED: Azithromycin 500 MG in Sodium Chloride 0.9% 250 ML 250 ML IVPB SCH ×2 (15:30)
[2019-07-15 05:38] LABS: #Eosinphils 0.2 thou/uL (0.0-0.7); #Lymphocytes 1.7 thou/uL (1.20-3.40); #Monocytes 0.7 thou/uL (0.11-0.59); %Basophils 0.3 % (0.0-1.0); %Eosinophils 1.8 % (0.0-10.0); %Lymphocytes 14.8 % (21.0-51.0); %Monocytes 5.9 % (0.0-10.0); %Neutrophils 77.2 % (42.0-75.0); Hemoglobin 7.9 g/dL (12.0-16.0); Mean Corpuscular HGB CONC 34.5 g/dL (32.0-36.0); Mean Corpuscular Hemoglobin 33.4 pg (27.0-31.0); Mean Corpuscular Volume 96.8 fL (78.0-98.0); Mean Platelet Volume 8.9 fL (7.4-10.4); Platelet Count 142 thou/uL (130-400); RBC Distribution Width 12.8 % (11.5-14.5); Red Blood Cell (RBC) Count 2.37 mill/uL (4.20-5.40); White Blood Cell (WBC) Count 11.6 thou/uL (4.8-10.8)
[2019-07-15 05:40] LABS: Hemoglobin 7.8 g/dL (12.0-16.0); Mean Corpuscular HGB CONC 34.5 g/dL (32.0-36.0); Mean Corpuscular Hemoglobin 33.4 pg (27.0-31.0); Mean Corpuscular Volume 96.9 fL (78.0-98.0); Mean Platelet Volume 9.1 fL (7.4-10.4); Platelet Count 147 thou/uL (130-400); RBC Distribution Width 12.7 % (11.5-14.5); Red Blood Cell (RBC) Count 2.33 mill/uL (4.20-5.40); White Blood Cell (WBC) Count 11.7 thou/uL (4.8-10.8)
[2019-07-15] MEDS: HYDROcodone/Acetaminophen 5/325 mg Tablet PO PRN ×4 (05:42→21:18)
[2019-07-15] MEDS: Ibuprofen 800 MG TAB PO SCH ×3 (05:42→21:17)
--- NOTE | 2019-07-15 09:29 | PDOC.PP ---
Post Progress Note Post Day #: 2 Subjective: 29 yo G2 now P2 delivered by rLTCS 2/2 failed tolac. Doing well. Ambulating, tolerating PO, passing flatus. able to void. Tolerating PO. Pain controlled with norco and ibuprofen. PO intake tolerated: yes Flatus: yes Ambulation: yes Vital Signs (12 hours) Temp Pulse Resp BP Pulse Ox 07/15/19 06:59 98 F 80 16 110/62 94 L 07/15/19 05:35 97.8 F 88 18 132/66 07/14/19 23:50 98.3 F 75 18 107/59 L Weight Weight 98.43 kg - Physical Examination General: NAD Cardiovascular: no m/r/g, RRR Respiratory: clear to auscultation bilaterally, non-labored breathing Abdominal: + bowel sounds, lochia, no distention, appropriately TTP Fundus firm & at: below umbilucus Extremities: negative homans (B) Skin: CS incision dry & intact, no rash Neurological: no gross focal deficits Psychiatric: normal affect Result Diagrams: 07/16/19 05:51 07/12/19 14:33 Additional Labs: Post Labs Blood Type O NEGATIVE 07/12/19 18:40 Hep Bs Antigen Non-Reactive S/CO (NonReactive) 07/12/19 18:34 (1) Chorioamnionitis Code(s): O41.1290 - CHORIOAMNIONITIS, UNSP TRIMESTER, NOT APPLICABLE OR UNSP Status: Acute (2) Gestational HTN Code(s): O13.9 - GESTATIONAL HTN W/O SIGNIFICANT PROTEINURIA, UNSP TRIMESTER Status: Acute (3) S/P Code(s): Z98.891 - HISTORY OF UTERINE SCAR FROM PREVIOUS SURGERY Status: Acute (4) Term delivered Code(s): O80 - ENCOUNTER FOR FULL-TERM UNCOMPLICATED DELIVERY Status: Acute - Assessment/Plan 1. TIUP, delivered via repeat LTCS - 24 hour QBL 1516 - H&H this AM 7.9 - Continue routine post-op care - repeat am hemagram 2. Gestational HTN - BP well controlled without medications - Continue routine monitoring 3. IAI - Afebrile overnight - abx discontinued, cont to monitor vitals Disposition: Stable, will continue current plan of care. Plan for discharge . Baby will undergo phototherapy for hyperbili. Addendum - Attending - Attending Attestation Date/Time: 07/15/19 0915 I personally evaluated the patient and discussed the management with Dr. Velasquez I agree with the History, Examination, Assessment and Plan documented above with any addition or exceptions noted below. Patient see on 07/15 @ 0915. Patient still has significant amount of pain and H& H downtrending. Baby staying for phototherapy. Repeat CBC in AM. Likely D/C tomorrow.
[2019-07-15] MEDS: Ferrous Sulfate 325 MG TAB PO SCH ×2 (10:10→21:17)
[2019-07-15] MEDS: Docusate Calcium (SURFAK) 240 MG CAP PO SCH ×2 (10:11→21:17)
[2019-07-15] MEDS: Prenatal Vitamin 1 TAB PO SCH (10:11)
[2019-07-15] MEDS: Simethicone Chewable 80 MG TAB PO PRN ×2 (14:05→21:17)
[2019-07-16] MEDS: Ibuprofen 800 MG TAB PO SCH (05:06)
[2019-07-16 06:13] LABS: Hemoglobin 8.5 g/dL (12.0-16.0); Mean Corpuscular Volume 97.2 fL (78.0-98.0); Mean Platelet Volume 9.1 fL (7.4-10.4); Platelet Count 207 thou/uL (130-400); RBC Distribution Width 12.6 % (11.5-14.5); Red Blood Cell (RBC) Count 2.51 mill/uL (4.20-5.40); White Blood Cell (WBC) Count 9.7 thou/uL (4.8-10.8)
--- NOTE | 2019-07-16 08:01 | PDOC.PP ---
Post Progress Note Post Day #: 3 Subjective: 29 yo G2now P2 pp day 3 s/p rLTCS 2/2 failed TOLAC. Doing well. Pain well controlled. All PP milestones met. Afebrile and pressures controlled. PO intake tolerated: yes Flatus: yes Ambulation: yes Vital Signs (12 hours) Temp Pulse Resp BP Pulse Ox 07/15/19 20:55 97.9 F 89 16 139/68 100 Weight Weight 98.43 kg - Physical Examination General: NAD Cardiovascular: no m/r/g, RRR Respiratory: clear to auscultation bilaterally, non-labored breathing Abdominal: + bowel sounds, lochia, no distention, appropriately TTP Skin: CS incision dry & intact, no rash Neurological: no gross focal deficits Psychiatric: normal affect Result Diagrams: 07/16/19 05:51 07/12/19 14:33 Additional Labs: Post Labs Blood Type O NEGATIVE 07/12/19 18:40 Hep Bs Antigen Non-Reactive S/CO (NonReactive) 07/12/19 18:34 (1) Chorioamnionitis Code(s): O41.1290 - CHORIOAMNIONITIS, UNSP TRIMESTER, NOT APPLICABLE OR UNSP Status: Acute (2) Gestational HTN Code(s): O13.9 - GESTATIONAL HTN W/O SIGNIFICANT PROTEINURIA, UNSP TRIMESTER Status: Acute (3) S/P Code(s): Z98.891 - HISTORY OF UTERINE SCAR FROM PREVIOUS SURGERY Status: Acute (4) Term delivered Code(s): O80 - ENCOUNTER FOR FULL-TERM UNCOMPLICATED DELIVERY Status: Acute - Assessment/Plan 1. TIUP, delivered via repeat LTCS - 24 hour QBL 1516 - H&H this AM 8.5 - ok for dc to home, cont PNV and Iron 2. Gestational HTN - BP well controlled without medications - ok for dc to home and f/u next week 3. IAI - Afebrile overnight - abx discontinued - stable for dc to home today Disposition: Stable, will dc veronica home today with bowel regimen and jonathan ibuprofen /tylenol and T3 for breakthrough pain. F/U next week in clinic. Addendum - Attending - Attending Attestation Date/Time: 07/16/19 1054 I personally evaluated the patient and discussed the management with Dr. Velasquez I agree with the History, Examination, Assessment and Plan documented above with any addition or exceptions noted below - Patient without complaints. Ambulating/voiding. Afebrile VSS. A/P: 1) POD#3 s/p repeat - doing well. D/c home today. F/U @[facility]
[2019-07-16] MEDS: Docusate Calcium (SURFAK) 240 MG CAP PO SCH (08:31)
[2019-07-16] MEDS: Ferrous Sulfate 325 MG TAB PO SCH (08:31)
[2019-07-16] MEDS: Prenatal Vitamin 1 TAB PO SCH (08:32)
[2019-07-16] MEDS: HYDROcodone/Acetaminophen 5/325 mg Tablet PO PRN (08:32)
[2019-07-16 09:21] VITALS: BP 126/71; TEMP 98.5
== END 2019-07-16 11:55 | disposition home or self-care (01) | DRG 786 ==
LOC: L&D/OP 11:07 → L&D 07-13 02:08 → 3SW 07-13 22:08
PROVIDERS: ADMIT Student in an Organized Health Care Education/Training Program; ATTEND Student in an Organized Health Care Education/Training Program
PROC: 10D00Z1 Extraction of Products of Conception, Low, Open Approach (ICD-10-PCS; principal; 2019-07-13)
DX: O34.211 Maternal care for low transverse scar from previous cesarean delivery (principal); O41.1230 Chorioamnionitis, third trimester, not applicable or unspecified; O72.1 Other immediate postpartum hemorrhage; O99.214 Obesity complicating childbirth; E66.9 Obesity, unspecified; O13.4 Gestational [pregnancy-induced] hypertension without significant proteinuria, complicating childbirth; Z3A.38 38 weeks gestation of pregnancy; Z37.0 Single live birth; O76 Abnormality in fetal heart rate and rhythm complicating labor and delivery; O62.1 Secondary uterine inertia
CPT/HCPCS: 36415; 51702; 76815; 80053; 82570; 84112; 84156; 85025; 85027; 85461; 86780; 86850; 86870; 86900; 86901; 87340; 88307; 90384; 96372; 99285; J0295; J0456; J0690; J1100; J1885; J1940; J2250; J2274; J2405; J2550; J2590; J3490

== ENCOUNTER 2019-08-11 03:45 | Emergency (ER) | payer OTHER ==
[2019-08-11] MEDS ORDERED: Morphine 4 MG/ML VIAL ONE (04:03)
[2019-08-11] MEDS ORDERED: Ondansetron PF 4 MG/2 ML Vial ONE (04:03)
[2019-08-11 04:20] LABS: #Basophils 0.1 thou/uL (0.0-0.2); #Lymphocytes 1.1 thou/uL (1.20-3.40); #Monocytes 0.6 thou/uL (0.11-0.59); #Neutrophils 11.3 thou/uL (1.40-6.50); %Basophils 0.6 % (0.0-1.0); %Eosinophils 0.3 % (0.0-10.0); %Lymphocytes 8.6 % (21.0-51.0); %Monocytes 4.2 % (0.0-10.0); %Neutrophils 86.3 % (42.0-75.0); Hemoglobin 13.6 g/dL (12.0-16.0); Mean Corpuscular HGB CONC 34.9 g/dL (32.0-36.0); Mean Corpuscular Hemoglobin 32.1 pg (27.0-31.0); Mean Corpuscular Volume 92.1 fL (78.0-98.0); Mean Platelet Volume 8.6 fL (7.4-10.4); Platelet Count 305 thou/uL (130-400); RBC Distribution Width 12.1 % (11.5-14.5); Red Blood Cell (RBC) Count 4.24 mill/uL (4.20-5.40); White Blood Cell (WBC) Count 13.1 thou/uL (4.8-10.8)
[2019-08-11 04:27] LABS: BHCG - Serum Negative (NEGATIVE); Pregs Control Background? CLEAR/WHITE (CLR/WHITE); Pregs Control Bar Appear? YES (CONTROL BAR)
[2019-08-11 04:45] LABS: ALT (SGPT) 41 U/L (8-55); AST (SGOT) 65 U/L (5-34); Albumin 4.6 g/dL (3.5-5.0); Alkaline Phosphatase 168 U/L (40-110); Anion Gap 16 mmol/L (10-20); BUN (Urea Nitrogen) 10 mg/dL (7.0-18.7); Bilirubin, Total 0.9 mg/dL (0.2-1.2); Calc. Creatinine Clearance 0 mL/min (70-130); Calcium 10.1 mg/dL (7.8-10.44); Carbon Dioxide 24 mmol/L (22-29); Chloride 103 mmol/L (98-107); Estimated GFR-MDRD 72; Globulin 3.4 g/dL (2.4-3.5); Glucose 115 mg/dL (70-105); Lipase 35 U/L (8-78); Potassium 4.3 mmol/L (3.5-5.1); Sodium 139 mmol/L (136-145)
--- NOTE | 2019-08-11 07:36 | ULT ---
PRELIMINARY REPORT/[facility]/AFTER HOURS PROCEDURE LIMITED RIGHT UPPER QUADRANT ABDOMEN ULTRASOUND: CLINICAL HISTORY: Epigastric/RUQ pain. See notes on last image. Thanks. TECHNIQUE: Real-time ultrasound of the right upper quadrant with image documentation. COMPARISON: None provided. FINDINGS: LIVER: Unremarkable. GALLBLADDER: Cholelithiasis is identified. No wall thickening. No pericholecystic fluid. The patient demonstrated a positive sonographic Palafox's sign. COMMON BILE DUCT: Measures 5.8 mm and intrahepatic biliary ductal dilatation is noted in the LEFT hep atic lobe. PANCREAS: Unremarkable as visualized. The distal pancreas is obscured by overlying bowel gas. RIGHT KIDNEY: Unremarkable. No hydronephrosis. Measures 11.4 cm. IMPRESSION: Cholelithiasis. The patient demonstrated a positive sonographic Palafox's sign with no evidence for gallbladder wall t hickening or pericholecystic fluid. Mild intrahepatic biliary ductal dilatation is noted in the LEFT hepatic lobe. ELECTRONICALLY SIGNED BY: Nagi Hylton MD Aug 11, 2019 5:19:17 AM DEHORNER This report is intended for review by the ordering physician only, in accordance of law. If you recei ve this report in error, please call [facility] at [phone]. FINAL REPORT RIGHT UPPER QUADRANT ULTRASOUND: PROVIDED CLINICAL HISTORY: Right upper quadrant pain. COMPARISON: None. FINDINGS/IMPRESSION: I agree with the preliminary interpretation given by [facility]. CODE QA Transcribed Date/Time: 08/11/2019 8:04 AM
== END 2019-08-11 05:48 | disposition home or self-care (01) ==
LOC: ERS 03:45
DX: K80.20 Calculus of gallbladder without cholecystitis without obstruction (principal)
CPT/HCPCS: 76705; 80053; 83690; 84703; 85025; 93005; 96374; 96375; J2270; J2405

== ENCOUNTER 2019-08-26 01:04 | Inpatient (IN) | payer OTHER ==
[2019-08-26 01:32] LABS: #Eosinphils 0.1 thou/uL (0.0-0.7); #Lymphocytes 1.2 thou/uL (1.20-3.40); #Monocytes 0.5 thou/uL (0.11-0.59); #Neutrophils 9.3 thou/uL (1.40-6.50); %Basophils 0.4 % (0.0-1.0); %Eosinophils 0.6 % (0.0-10.0); %Lymphocytes 10.9 % (21.0-51.0); %Monocytes 4.2 % (0.0-10.0); %Neutrophils 83.9 % (42.0-75.0); Hemoglobin 12.8 g/dL (12.0-16.0); Mean Corpuscular HGB CONC 33.4 g/dL (32.0-36.0); Mean Corpuscular Volume 92.8 fL (78.0-98.0); Mean Platelet Volume 8.5 fL (7.4-10.4); Platelet Count 285 thou/uL (130-400); RBC Distribution Width 11.9 % (11.5-14.5); Red Blood Cell (RBC) Count 4.11 mill/uL (4.20-5.40)
[2019-08-26 01:54] LABS: ALT (SGPT) 60 U/L (8-55); AST (SGOT) 118 U/L (5-34); Albumin 4.5 g/dL (3.5-5.0); Alkaline Phosphatase 188 U/L (40-110); Anion Gap 13 mmol/L (10-20); BUN (Urea Nitrogen) 10 mg/dL (7.0-18.7); Bilirubin, Total 0.8 mg/dL (0.2-1.2); Calc. Creatinine Clearance 0 mL/min (70-130); Calcium 9.8 mg/dL (7.8-10.44); Carbon Dioxide 25 mmol/L (22-29); Chloride 107 mmol/L (98-107); Estimated GFR-MDRD 90; Globulin 2.9 g/dL (2.4-3.5); Glucose 116 mg/dL (70-105); Lipase 43 U/L (8-78); Protein, Total 7.4 g/dL (6.0-8.3); Sodium 141 mmol/L (136-145)
[2019-08-26 01:59] LABS: Bilirubin Negative (Negative); Blood, Urine Negative (Negative); Clarity Clear (Clear); Glucose, Urine (Dipstick) Normal (Negative); Leukocyte Negative Leu/uL (Negative); Nitrite Negative (Negative); Protein, Urine (Dipstick) Negative (Neg-Trace); Urobilinogen Normal mg/dL (Less than 2)
[2019-08-26] MEDS ORDERED: Ondansetron PF 4 MG/2 ML Vial ONE ×3 (02:09→10:31)
[2019-08-26] MEDS ORDERED: Morphine 2 MG/ML SYRINGE ONE (02:09)
[2019-08-26] MEDS ORDERED: Piperacillin/Tazobactam 3.375 GM VIAL ONE (03:12)
[2019-08-26] MEDS ORDERED: Ondansetron ODT 4 MG TAB SL PRN (05:29)
[2019-08-26] MEDS ORDERED: Ondansetron PF 4 MG/2 ML Vial IVP PRN (05:29)
[2019-08-26] MEDS ORDERED: Dextrose 5 % And 0.9 % NaCl 1,000 ML IV SCH (05:30)
[2019-08-26] MEDS ORDERED: Sodium Chloride 0.9% 10 ML ONE (07:52)
[2019-08-26] MEDS: Morphine 2 MG/ML SYRINGE SLOW IVP PRN ×2 (07:58→13:16)
--- NOTE | 2019-08-26 07:58 | ULT ---
PRELIMINARY REPORT/[facility]/AFTER HOURS PROCEDURE LIMITED RIGHT UPPER QUADRANT ABDOMEN ULTRASOUND: CLINICAL HISTORY: Severe RUQ pain. Hx of gallstones. See notes on last image. Thanks. TECHNIQUE: Real-time ultrasound of the right upper quadrant with image documentation. COMPARISON: Right upper quadrant gallbladder ultrasound from 08/11/2019 at 4:27 a.m., [employer]. FINDINGS: LIVER: Unremarkable. GALLBLADDER: Cholelithiasis is noted with gallbladder wall thickening at 5.2 mm and trace pericholecy stic fluid is identified. The patient was treated a positive sonographic Palafox's sign. COMMON BILE DUCT: No dilation. Measures 4.7 mm. PANCREAS: Unremarkable as visualized. The distal pancreas is obscured by overlying bowel gas. RIGHT KIDNEY: Unremarkable. No hydronephrosis. Measures 12.2 cm. IMPRESSION: The findings are consistent with acute cholecystitis. ELECTRONICALLY SIGNED BY: Nagi Hylton MD Aug 26, 2019 2:56:42 AM [employer] This report is intended for review by the ordering physician only, in accordance of law. If you recei ve this report in error, please call [facility] at [phone]. FINAL REPORT EMERGENT AFTER HOURS GALLBLADDER ULTRASOUND: 08/26/2019 2:34 a.m. Multiple cholelithiasis with some wall thickening and minimal edematous changes as well as multiple l ayering gallstones with a very positive Palafox sign. The common bile duct is 0.5 cm. There is some in trahepatic ductal dilatation involving the left lobe. This was present dating back to 08/11/2019. Gay dence for acute cholecystitis. This report is in agreement with the preliminary report. CODE QA POS: LIZ
[2019-08-26] MEDS ORDERED: Ketorolac Tromethamine 30 MG/ML VIAL ONE (10:31)
[2019-08-26] MEDS ORDERED: Lidocaine 1% PF 5 ML VIAL ONE (10:31)
[2019-08-26] MEDS ORDERED: Rocuronium Bromide 10 MG/ML (10ML VIAL) ONE (10:31)
[2019-08-26] MEDS ORDERED: PROPOFOL 200 MG/20 ML VIAL ONE (10:31)
--- NOTE | 2019-08-26 12:46 | PDOC.GSCN ---
Surgery Consult: HPI - Consult details Date: 08/26/19 Time: 10:00 Reason for consult: abdominal pain History of present illness: 08/26/19 12:44 29yo female with 1 day history of abdominal pain. The pain is located in the RUQ and radiates along the right subcostal margin. Characterized as "sharp" and 10/10. Denies N/V/D. No previous episodes. Surgery Consult: ROS - Review of Systems All systems: 10 systems reviewed and no additional complaints unless stated below. Surgery Consult: PMH Past Medical History: None Past Surgical History: x 2 - Past Family History Family history: reviewed and not pertinent - Past Social History Smoking Status: Never smoker Alcohol Use: rarely Drug Use History: none Living Situation: Surgery Consult: Exam - Vital signs Vital signs: Vital Signs - Most Recent Temp Pulse Resp BP Pulse Ox 98.3 F 54 L 16 105/51 L 97 08/26/19 08:00 08/26/19 08:00 08/26/19 08:00 08/26/19 08:00 08/26/19 08:00 - Physical Exam General: no distress, well developed Eye: normal ocular movement, PERRL ENT: normal mucosa, normal nares Neck: no lymphadectomy, no masses, no monique distention Respiratory: clear to auscultation Abdomen: soft (TTP RUQ. Negative Palaofx's sign.) Hernia: none Integumentary: no abnormal pigmentation, no growths Neurologic: normal coordination, normal sensation Musculoskeletal: normal gait, normal posture Psychiatric: oriented to time, oriented to person, oriented to place Surgery Consult: Meds - Medications Medications: Current Medications Dextrose/Sodium Chloride (D5 0.9% Ns) 1,000 mls @ 125 mls/hr IV .Q8H MAKENZIE Stop: 08/26/19 13:12 Morphine Sulfate (Morphine) 2 mg SLOW IVP Q2H PRN PRN Reason: Pain Stop: 08/26/19 15:12 Last Admin: 08/26/19 07:58 Dose: 2 mg Ondansetron HCl (Zofran) 4 mg IVP Q6H PRN PRN Reason: Nausea/Vomiting Stop: 08/26/19 13:12 Last Admin: 08/26/19 08:11 Dose: 4 mg Ondansetron HCl (Zofran Odt) 4 mg SL Q6H PRN PRN Reason: Nausea/Vomiting Stop: 08/26/19 13:12 - Allergies Allergies/Adverse Reactions: Allergies Allergy/AdvReac Type Severity Reaction Status Date / Time rituximab [From Rituxan] Allergy Severe Anaphylaxis Verified 07/12/19 11:56 Surgery Consult: Results - Labs Result Diagrams: 08/26/19 01:22 08/26/19 01:22 Lab results: Laboratory Results WBC 11.0 thou/uL (4.8-10.8) H 08/26/19 01:22 RBC 4.11 mill/uL (4.20-5.40) L 08/26/19 01:22 Hgb 12.8 g/dL (12.0-16.0) 08/26/19 01:22 Hct 38.1 % (36.0-47.0) 08/26/19 01:22 MCV 92.8 fL (78.0-98.0) 08/26/19 01:22 MCH 31.0 pg (27.0-31.0) 08/26/19 01:22 MCHC 33.4 g/dL (32.0-36.0) 08/26/19 01:22 RDW 11.9 % (11.5-14.5) 08/26/19 01:22 Plt Count 285 thou/uL (130-400) 08/26/19 01:22 MPV 8.5 fL (7.4-10.4) 08/26/19 01:22 Neutrophils % 83.9 % (42.0-75.0) H 08/26/19 01:22 Lymphocytes % 10.9 % (21.0-51.0) L 08/26/19 01:22 Monocytes % 4.2 % (0.0-10.0) 08/26/19 01:22 Eosinophils % 0.6 % (0.0-10.0) 08/26/19 01:22 Basophils % 0.4 % (0.0-1.0) 08/26/19 01:22 Neutrophils # 9.3 thou/uL (1.40-6.50) H 08/26/19 01:22 Lymphocytes # 1.2 thou/uL (1.20-3.40) 08/26/19 01:22 Monocytes # 0.5 thou/uL (0.11-0.59) 08/26/19 01:22 Eosinophils # 0.1 thou/uL (0.0-0.7) 08/26/19 01:22 Basophils # 0.0 thou/uL (0.0-0.2) 08/26/19 01:22 Sodium 141 mmol/L (136-145) 08/26/19 01:22 Potassium 4.0 mmol/L (3.5-5.1) 08/26/19 01:22 Chloride 107 mmol/L (98-107) 08/26/19 01:22 Carbon Dioxide 25 mmol/L (22-29) 08/26/19 01:22 Anion Gap 13 mmol/L (10-20) 08/26/19 01:22 BUN 10 mg/dL (7.0-18.7) 08/26/19 01:22 Creatinine 0.75 mg/dL (0.6-1.1) 08/26/19 01:22 Estimated GFR (MDRD) 90 08/26/19 01:22 Glucose 116 mg/dL (70-105) H 08/26/19 01:22 Calcium 9.8 mg/dL (7.8-10.44) 08/26/19 01:22 Total Bilirubin 0.8 mg/dL (0.2-1.2) 08/26/19 01:22 AST 118 U/L (5-34) H 08/26/19 01:22 ALT 60 U/L (8-55) H 08/26/19 01:22 Alkaline Phosphatase 188 U/L (40-110) H 08/26/19 01:22 Serum Total Protein 7.4 g/dL (6.0-8.3) 08/26/19 01:22 Albumin 4.5 g/dL (3.5-5.0) 08/26/19 01:22 Globulin 2.9 g/dL (2.4-3.5) 08/26/19 01:22 Albumin/Globulin Ratio 1.6 g/dL (1.2-2.2) 08/26/19 01:22 Lipase 43 U/L (8-78) 08/26/19 01:22 Urine Color Colorless (Yellow) 08/26/19 01:50 Urine Clarity Clear (Clear) 08/26/19 01:50 Urine pH 7.0 (5.0-9.0) 08/26/19 01:50 Ur Specific [place] 1.003 (1.002-1.036) 08/26/19 01:50 Urine Protein Negative mg/dL (Neg-Trace) 08/26/19 01:50 Urine Glucose (UA) Normal mg/dL (Negative) 08/26/19 01:50 Urine Ketones Negative mg/dL (Negative) 08/26/19 01:50 Urine Blood Negative (Negative) 08/26/19 01:50 Urine Nitrite Negative (Negative) 08/26/19 01:50 Urine Bilirubin Negative (Negative) 08/26/19 01:50 Urine Urobilinogen Normal mg/dL (Less than 2) 08/26/19 01:50 Ur Leukocyte Esterase Negative Calli/uL (Negative) 08/26/19 01:50 - Radiology Interpretation US - abdomen Additional comments: Demonstrates GBW thickening 5.2mm, normal CBD and pericholecystic fluid c/w acute cholecystitis Surgery Consult: A/P - Problem (1) Acute cholecystitis Current Visit: Yes Code(s): K81.0 - ACUTE CHOLECYSTITIS Status: Acute - Plan Plan: Plan for laparoscopic cholecystectomy today. The risks and benefits have been discussed and informed consent obtained.
[2019-08-26] MEDS ORDERED: Mag-Al 1200 mg/1200 mg/30 ML UDCUP PO PRN (12:49)
[2019-08-26] MEDS ORDERED: Dextrose 50% Abboject 50 ML SYRINGE SLOW IVP PRN (12:49)
[2019-08-26] MEDS ORDERED: Calcium Carbonate 500 MG ChewTAB PO PRN (12:49)
[2019-08-26] MEDS ORDERED: hydrALAZINE 20 MG/ML VIAL SLOW IVP PRN (12:49)
[2019-08-26] MEDS ORDERED: Dextrose 5% in Water 1,000 ML IV PRN (12:49)
[2019-08-26] MEDS ORDERED: Bupivacaine 0.25% HCL 30 ML VIAL ONE (16:06)
[2019-08-26] MEDS ORDERED: Midazolam HCl 2 mg/2 ml Vial ONE (16:19)
[2019-08-26] MEDS ORDERED: Fentanyl 100 MCG/2 ML VIAL ONE (16:19)
[2019-08-26] MEDS ORDERED: Promethazine HCl 25 MG/ML VIAL IM PRN (17:29)
[2019-08-26] MEDS ORDERED: Ondansetron HCl/PF 4 MG/2 ML Vial IVP PRN (17:29)
[2019-08-26] MEDS ORDERED: Promethazine HCl 25 MG/ML VIAL SLOW IVP PRN (17:29)
[2019-08-26] MEDS ORDERED: Promethazine HCl 25 MG/ML VIAL ONE (17:47)
[2019-08-26] MEDS: Ketorolac Tromethamine 30 MG/ML VIAL IVP SCH (18:28)
--- NOTE | 2019-08-26 19:12 | OP ---
DATE OF PROCEDURE: 08/26/2019 PREOPERATIVE DIAGNOSIS: Acute cholecystitis. POSTOPERATIVE DIAGNOSIS: Acute cholecystitis. PROCEDURE PERFORMED: Laparoscopic cholecystectomy. INDICATIONS FOR PROCEDURE: This is a 29-year-old female with 1-day history of right upper quadrant pain. Her emergency department workup was consistent with acute cholecystitis. The relative risks and benefits of laparoscopic cholecystectomy were discussed in detail with the patient and informed consent obtained. DESCRIPTION OF PROCEDURE: The patient was brought to the operating room, positioned supine on the operating room table. After induction of general, endotracheal anesthesia, the patient was prepared and draped in the usual fashion. Prior to the procedure beginning, a complete time-out was performed with all members of the operative team being present and in agreement. Access to the abdomen was obtained in the right upper quadrant using an optical trocar under direct visualization. The abdomen was insufflated and examined. Inflammation was found in the area of the gallbladder. The gallbladder was retracted cephalad. The triangle of Calot was dissected using blunt dissection and electrocautery. This proceeded until the critical view of safety was achieved. Once a critical view of safety was achieved, the cystic duct and arteries were divided between clips. The gallbladder was removed from the gallbladder bed using electrocautery. The specimen was placed in a specimen bag. The abdomen was irrigated and suctioned free. Excellent hemostasis was achieved. The specimen was removed and the 12 mm trocar site closed with 0-Vicryl suture in interrupted fashion utilizing a suture passer. The skin was closed with 4-0 Monocryl and dressed with skin adhesive dressing. At the conclusion of the case, all sponge and instrument counts were correct. COMPLICATIONS: None. SPECIMENS: Gallbladder. DISPOSITION: The patient was transported to the postoperative recovery unit in good condition. Job ID: [id number]
[2019-08-27] MEDS: Ketorolac Tromethamine 30 MG/ML VIAL IVP SCH ×2 (00:07→05:31)
[2019-08-27] MEDS: Acetaminophen/Codeine 30-300mg Tablet PO PRN ×2 (08:44→16:42)
[2019-08-27] MEDS ORDERED: Enoxaparin Sodium 40 MG/0.4 ML SYRINGE SC SCH (09:00)
[2019-08-27 12:07] VITALS: BP 100/55; TEMP 97.8
--- NOTE | 2019-08-29 06:00 | DIS ---
DATE OF ADMISSION: 08/26/2019 DATE OF DISCHARGE: 08/27/2019 ADMISSION DIAGNOSIS: Acute cholecystitis. DISCHARGE DIAGNOSIS: Acute cholecystitis. PROCEDURES: Laparoscopic cholecystectomy. HOSPITAL COURSE: This is a 29-year-old female, who presented with right upper quadrant pain. Her emergency department workup was consistent with acute cholecystitis. She is placed on observation and taken to the operating room later that day. She tolerated the procedure well and was returned to the floor. While on the floor, her diet was advanced to a regular diet. She was ambulated early in her postoperative course. On postop day #1, she was tolerating regular diet, ambulating independently, voiding spontaneously, and her pain was well controlled with oral analgesia. She was appropriate for discharge. DISCHARGE DISPOSITION: Home. CONDITION: Good. DISCHARGE MEDICATIONS: Tylenol No. 3. Job ID: [id number]
== END 2019-08-27 16:50 | disposition home or self-care (01) | DRG 419 ==
LOC: ERS 01:04 → 3SE 03:25
PROVIDERS: ADMIT Surgery; ATTEND Surgery
PROC: 0FT44ZZ Resection of Gallbladder, Percutaneous Endoscopic Approach (ICD-10-PCS; principal; 2019-08-26)
DX: K80.00 Calculus of gallbladder with acute cholecystitis without obstruction (principal)
CPT/HCPCS: 76705; 80053; 81003; 83690; 85025; 88304; 96361; 96365; 96375; J1885; J2001; J2250; J2270; J2405; J2543; J2550; J2704; J3010; S0020